=== PATIENT | female | born 1965 | race Asian ===

== ENCOUNTER 2019-03-06 07:50 | Day surgery (SDC) | payer BC ==
[2019-03-06] MEDS ORDERED: FENTAnyl 50 MCG/ML VIAL (11:15)
[2019-03-06] MEDS ORDERED: MIDAZOLAM 1 MG/ML 2 ML INJ ×2 (11:15)
== END 2019-03-06 14:18 | disposition home or self-care (01) ==
LOC: GIL 07:50
DX: Z12.11 Encounter for screening for malignant neoplasm of colon (principal); K64.8 Other hemorrhoids; D12.5 Benign neoplasm of sigmoid colon
CPT/HCPCS: 45385; 88305